=== PATIENT | female | born 2000 | race Caucasian/White ===

== ENCOUNTER → 2019-01-10 | Outpatient (CLI) | payer BC ==
--- NOTE | 2019-01-14 10:21 | RADIOLOGY IMAGING REPORT ---
FACILITY[place] [facility] [place] NAME: ALYCIA COSBY : [id number] MR: [id number] V: [id number] EXAM DATE: [id number] ORDERING PHYSICIAN: CHAKA HAYS TECHNOLOGIST: Jessenia Cano RDMS PROCEDURE:US BILATERAL BREAST COMPARISON:None. INDICATIONS:BILATERAL NIPPLE DISCHARGE, GALACTORREHA FINDINGS: Scanning of the retroareolar aspect of each breast was performed. Ducts are not sub stanchly dilated. There is no solid of cystic focus of concern. No architectural distortion of shadowing evident. DIAGNOSTIC CATEGORY 1--NEGATIVE. RECOMMENDATIONS: CLINICAL EVALUATION OF PATIENT'S LIKELY BENIGN DISCHARGE. IMPRESSION: BIRADS 1: Negative. Dictated by: lAan Herndon on 01/10/2019 at 15:18 Transcribed by: WU on 01/13/2019 at 11:01 Approved by: Judie Aleman M.D. on 01/14/2019 at 10:20 [facility]
== END ==
LOC: US 01:50
PROVIDERS: ATTEND Nurse Practitioner Family
DX: N64.3 Galactorrhea not associated with childbirth (principal)